=== PATIENT | female | born 1985 | race Two or more races ===

== ENCOUNTER 2023-08-02 19:07 | Emergency (ER) | payer OTHER ==
[~2023-08-02] VITALS: Ht 154.9 cm; Wt 61.2 kg
[2023-08-02] MEDS ORDERED: PROGESTERONE (19:34)
[2023-08-02] MEDS ORDERED: PRENA1 CHEW TA1.4 MG (19:34)
[2023-08-02 22:18] LABS: HEMATOCRIT 32.3 % (36.0-45.00); HEMOGLOBIN 11.2 g/dL (12.0-15.00); MEAN CELL VOLUME 92.7 fL (80.00-100.00); MEAN CORPUSCULAR HEMOGLOBIN 32.2 pg (27.00-32.0); MEAN CORPUSCULAR HGB CONC 34.7 g/dl (32.0-36.0); PLATELET COUNT 306 K/uL (150-450); RED BLOOD COUNT 3.48 M/uL (4.00-6.00); RED CELL DISTRIBUTION WIDTH 11.7 % (11.5-14.5)
== END 2023-08-03 00:05 | disposition home or self-care (01) ==
LOC: ER 19:08
DX: O20.8 Other hemorrhage in early pregnancy (principal); Z3A.01 Less than 8 weeks gestation of pregnancy; Z91.013 Allergy to seafood